=== PATIENT | male | born 1960 | race Caucasian/White ===

== ENCOUNTER 2020-05-15 09:10 | Emergency (ER) | payer OTHER ==
[2020-05-15] MEDS ORDERED: Sodium Chloride 0.9% 10 ML Syringe FLUSH PRN (09:16)
--- NOTE | 2020-05-15 09:37 | EDM.PDOC ---
ED HPI GENERAL MEDICAL PROBLEM - General Chief Complaint: Neuro Symptoms/Deficits Stated Complaint: [facility] Time Seen by Provider: 05/15/20 09:15 Source of Information: Reports: EMS, Family History Limitations: Reports: Altered Mental Status - History of Present Illness INITIAL COMMENTS - FREE TEXT/NARRATIVE: The patient presents by [facility] for stroke like symptoms. His last time known well was 10pm last night. His and him talked and he was doing fine. He has a history of A-fib and he is on flecanide and metoprolol. He has been out of A-fib and is not on any blood thinners. He told his that he felt like he went into A-fib on Wednesday but it felt like he was back out again. He is seeing cardiology in [place]. He usually starts reading films at 5am but we were not getting labs. Staff and his tried calling him. His is out of town in [place], [place]. He did answer but would only say one word response like stop. EMS found him in the basement in the room he uses to read and he could not move anything. He did say a few words. He then could move his left side but not his right. He can move his right leg but not right arm and he is looking to the left. Onset: Sudden Duration: Hour(s): (Last time known well is 10 pm last night) Improves with: Reports: None Worsens with: Reports: None Associated Symptoms: Reports: No Other Symptoms - Related Data Allergies Allergy/AdvReac Type Severity Reaction Status Date / Time Unable to Assess Allergy Unverified 09/13/14 11:15 ED ROS GENERAL - Review of Systems Review Of Systems: See Below Constitutional: Reports: No Symptoms HEENT: Reports: No Symptoms Respiratory: Reports: No Symptoms Cardiovascular: Reports: No Symptoms Endocrine: Reports: No Symptoms GI/Abdominal: Reports: No Symptoms : Reports: No Symptoms Musculoskeletal: Reports: No Symptoms Skin: Reports: No Symptoms Neurological: Reports: Weakness (right side) ED EXAM, NEURO - Physical Exam Exam: See Below Exam Limited By: No Limitations General Appearance: Alert Ears: Normal External Exam Nose: Normal Inspection Throat/Mouth: Normal Inspection Head Exam: Atraumatic, Normocephalic Neck: Normal Inspection, Supple, Non-Tender Respiratory/Chest: No Respiratory Distress, Lungs Clear, Normal Breath Sounds Cardiovascular: Regular Rate, Rhythm, No Edema, No Murmur GI/Abdominal: Soft, Non-Tender, No Organomegaly, No Mass Neurological: Alert, Other (He cannot move his right arm but he can move his right leg. He will give me one word answers. He is looking to the left.) EKG INTERPRETATION EKG Date: 05/15/20 Time: 09:56 Rhythm: Other (sinus bradycardia) Rate (Beats/Min): 56 [place]: Normal P-Wave: Present QRS: Normal ST-T: Normal QT: Normal MN/PQ Interval: 1st degree HB Course - Orders/Labs/Meds Orders: Active Orders 24 hr Category Date Time Status Cardiac Monitoring [RC] . DIRECTED Care 05/15/20 09:16 Active EKG Documentation Completion [RC] STAT Care 05/15/20 09:16 Active Oxygen Therapy [RC] PRN Care 05/15/20 09:16 Active Peripheral IV Care [RC] . DIRECTED Care 05/15/20 09:16 Active Brain wo Cont [MR] Stat Exams 05/15/20 09:27 Taken Head wo Cont [CT] Stat Exams 05/15/20 09:16 Taken CORONAVIRUS COVID-19 RAPID [MOLEC] Stat Lab 05/15/20 10:05 Received Sodium Chloride 0.9% [Saline Flush] Med 05/15/20 09:16 Active 10 ml FLUSH ASDIRECTED PRN Peripheral IV Insertion Adult [OM.PC] Stat Oth 05/15/20 09:16 Ordered Medication Orders Sodium Chloride (Saline Flush) 10 ml FLUSH ASDIRECTED PRN PRN Reason: Keep Vein Open Last Admin: 05/15/20 09:41 Dose: 10 ml Documented by: HEMALATHA Labs: Laboratory Tests 05/15/20 05/15/20 05/15/20 Range/Units 09:28 09:28 09:28 WBC 10.97 H (4.23-9.07) K/mm3 RBC 4.45 L (4.63-6.08) M/mm3 Hgb 14.3 (13.7-17.5) gm/dl Hct 42.2 (40.1-51.0) % MCV 94.8 H D (79.0-92.2) fl MCH 32.1 (25.7-32.2) pg MCHC 33.9 (32.2-35.5) g/dl RDW Std Deviation 43.8 (35.1-43.9) fL Plt Count 251 (163-337) K/mm3 MPV 11.1 (9.4-12.3) fl Neut % (Auto) 88.7 H (34.0-67.9) % Lymph % (Auto) 6.0 L (21.8-53.1) % Kerr % (Auto) 5.0 L (5.3-12.2) % Eos % (Auto) 0 L (0.8-7.0) Baso % (Auto) 0.1 (0.1-1.2) % Neut # (Auto) 9.73 H (1.78-5.38) K/mm3 Lymph # (Auto) 0.66 L (1.32-3.57) K/mm3 Kerr # (Auto) 0.55 (0.30-0.82) K/mm3 Eos # (Auto) 0.00 L (0.04-0.54) K/mm3 Baso # (Auto) 0.01 (0.01-0.08) K/mm3 Manual Slide Review Abnormal smear PT 11.6 (9.7-11.7) SECONDS INR 1.09 APTT 25 (22-31) SECONDS Sodium 139 (136-145) mEq/L Potassium 3.8 (3.5-5.1) mEq/L Chloride 104 (98-107) mEq/L Carbon Dioxide 23 (21-32) mEq/L Anion Gap 15.8 H (5-15) BUN 8 (7-18) mg/dL Creatinine 1.1 (0.7-1.3) mg/dL Est Cr Clr Drug Dosing TNP Estimated GFR (MDRD) > 60 (>60) mL/min BUN/Creatinine Ratio 7.3 L (14-18) Glucose 122 H (80-115) mg/dL Calcium 8.5 (8.5-10.1) mg/dL Total Bilirubin 0.6 (0.2-1.0) mg/dL AST 20 (15-37) U/L ALT 26 (16-63) U/L Alkaline Phosphatase 60 (46-116) U/L Troponin I < 0.017 (0.00-0.056) ng/mL Total Protein 7.1 (6.4-8.2) g/dl Albumin 3.8 (3.4-5.0) g/dl Globulin 3.3 gm/dL Albumin/Globulin Ratio 1.2 (1-2) Meds: Medications Generic Name Dose Route Start Last Admin Trade Name Niall PRN Reason Stop Dose Admin Sodium Chloride 10 ml 05/15/20 09:16 05/15/20 09:41 Saline Flush FLUSH 10 ml ASDIRECTED PRN Administration Keep Vein Open - Re-Assessments/Exams Free Text/Narrative Re-Assessment/Exam: 05/15/20 09:39 A stroke alert was called. I did a quick exam of the patient when he came in and he had right sided weakness. He went right to the CT scanner. I ordered an IV saline lock, labs, CT of his head. The CT of his head shows hypodensity noted within the left middle cerebral artery distribution involving the temporoparietal lobe just anterior to the sylvian fissure. This is best seen on image 10/13 through this possibly, given the history of right-sided weakness, is an acute ischemic event. This does apparently involve the insular cortex. There is no intracranial blood. There is mild small vessel ischemic changes. I called [facility] in [place] and talked with Dr Ahmadi and he recommended an MRI diffusion and flair of his brain. I have ordered that. [place] [facility] crew has been dispatched. 05/15/20 10:01 His EKG shows sinus bradycardia. 05/15/20 10:18 The MRI is done. Dr Ahmadi looked at it and he said this is a fairly recent stroke and he wants us to give TPA. Dr Valerio has no other contraindications. I did call his Eloisa and she was advised of the risks and benefits and she was for it. I did order the TPA. He is 100kg. Departure - Departure Time of Disposition: 10:25 Disposition: DC/Tfer to Acute Hospital 02 Condition: Serious Clinical Impression: Cerebrovascular accident (CVA) Qualifiers: CVA mechanism: occlusion Precerebral and cerebral artery: middle cerebral artery Laterality of affected vessel: left Qualified Code(s): I63.512 - Cerebral infarction due to unspecified occlusion or stenosis of left middle cerebral artery - Discharge Information Forms: ED Department Discharge - My Orders Last 24 Hours: My Active Orders 05/15/20 09:16 Cardiac Monitoring [RC] . DIRECTED EKG Documentation Completion [RC] STAT Oxygen Therapy [RC] PRN Peripheral IV Care [RC] . DIRECTED Head wo Cont [CT] Stat Sodium Chloride 0.9% [Saline Flush] 10 ml FLUSH ASDIRECTED PRN Peripheral IV Insertion Adult [OM.PC] Stat 05/15/20 09:27 Brain wo Cont [MR] Stat 05/15/20 10:05 CORONAVIRUS COVID-19 RAPID [MOLEC] Stat - Assessment/Plan Last 24 Hours: My Active Orders 05/15/20 09:16 Cardiac Monitoring [RC] . DIRECTED EKG Documentation Completion [RC] STAT Oxygen Therapy [RC] PRN Peripheral IV Care [RC] . DIRECTED Head wo Cont [CT] Stat Sodium Chloride 0.9% [Saline Flush] 10 ml FLUSH ASDIRECTED PRN Peripheral IV Insertion Adult [OM.PC] Stat 05/15/20 09:27 Brain wo Cont [MR] Stat 05/15/20 10:05 CORONAVIRUS COVID-19 RAPID [MOLEC] Stat
[2020-05-15] MEDS ORDERED: Alteplase 81 MG in Premix Bag 1 BAG IV ONE (10:30)
--- NOTE | 2020-06-25 09:39 | CT ---
PROCEDURE INFORMATION: Exam: CT Head Without Contrast Exam date and time: 05/15/2020 9:01 AM Age: 59 years old Clinical indication: Speech disturbance and weakness, extremity; Patient HX: Right sided weakness, stroke protocol TECHNIQUE: Imaging protocol: Computed tomography of the head without contrast. Radiation optimization: All CT scans at this facility use at least one of these dose optimization techniques: automated exposure control; mA and/or kV adjustment per patient size (includes targeted exams where dose is matched to clinical indication); or iterative reconstruction. COMPARISON: No relevant prior studies available. FINDINGS: Brain: There is hypodensity noted within the left middle cerebral artery distribution involving the temporoparietal lobe just anterior to the sylvian fissure. This is best seen on image 10/13 through . This possibly, given the history of right-sided weakness, is an acute ischemic event. This does apparently involves the insular cortex. There is no intracranial blood. There is mild small vessel ischemic changes. Cerebral ventricles: No ventriculomegaly. Bones/joints: Unremarkable. No acute fracture. Paranasal sinuses: Visualized sinuses are unremarkable. No fluid levels. Mastoid air cells: Visualized mastoid air cells are well aerated. Soft tissues: Unremarkable. IMPRESSION: Suspected acute left middle cerebral artery infarct. ASSESSMENT: ASPECTS (Becky Stroke Program Early CT Score) is 8. Thank you for allowing us to participate in the care of your patient. Dictated and Authenticated by: Low Woodson MD 06/24/2020 1:20 PM Central Time ([place] & [place]) ANYA
--- NOTE | 2020-06-25 09:40 | MR ---
PROCEDURE INFORMATION: Exam: MR Head Without Contrast Exam date and time: 05/15/2020 9:40 AM Age: 59 years old Clinical indication: Other: CVA, right sided weakness TECHNIQUE: Imaging protocol: MR of the head without contrast. COMPARISON: CT Head wo Cont 05/15/2020 9:01 AM FINDINGS: Brain: There is an acute infarct noted involving the left middle cerebral artery distribution involving the medial aspect of the left temporal lobe extending into the mid to posterior parietal lobe. This is mostly cortical. There is no intracranial hemorrhage. Minimal areas of increased signal seen within the deep white matter suggestive of mild small vessel ischemic disease. Cerebral ventricles: Normal. No ventriculomegaly. Bones/joints: Unremarkable. Paranasal sinuses: Normal as visualized. No acute sinusitis. Mastoid air cells: Normal as visualized. No mastoid effusion. Orbits: Unremarkable. Soft tissues: Unremarkable. IMPRESSION: 1. Left middle cerebral artery nonhemorrhagic. 2. THIS REPORT CONTAINS FINDINGS THAT MAY BE CRITICAL TO PATIENT CARE. The findings were verbally communicated by me to FRANCIS IBRAHIM at 11:14 AM MARINE SERVICE MANAGER on 05/15/2020. The findings were acknowledged and understood. The ER physician was notified of these results before the examination was dictated. Thank you for allowing us to participate in the care of your patient. Dictated and Authenticated by: Low Woodson MD 06/24/2020 1:21 PM Central Time ([place] & [place]) [facility] CENTERPlacido
== END 2020-05-15 11:32 ==
LOC: JD.ED 09:10
DX: I63.512 Cerebral infarction due to unspecified occlusion or stenosis of left middle cerebral artery (principal); I48.91 Unspecified atrial fibrillation; Z79.899 Other long term (current) drug therapy
CPT/HCPCS: 36415; 37195; 70450; 70551; 80053; 84484; 85025; 85610; 85730; 87635; 93005; 99285; J2997; U0002

== ENCOUNTER 2020-12-26 09:36 | Day surgery (SDC) | payer OTHER ==
[~2020-12-26 09:36] MED LIST: Lactated Ringers 1,000 ML IV SCH; Lidocaine 1%/Sod Bicarbonate in NS 8.4% 1 ML Syringe IDERM PRN; Sodium Chloride 0.9% 10 ML Syringe FLUSH PRN
--- NOTE | 2020-12-26 10:18 | PCM.PREANE ---
Preanesthetic Assessment - Procedure Proposed Procedure: Open left inguinal hernia repair with mesh - Anesthesia/Transfusion/Family Hx Anesthesia History: Prior Anesthesia Without Reaction Family History of Anesthesia Reaction: No Transfusion History: No Prior Transfusion(s) Intubation History: Unknown - Review of Systems Cardiovascular: No Symptoms (History of Atrial fibrillation on eliquis ) Neurological: No Symptoms (History of left MCA CVA in April 2020 (received TPA in ER) on eliquis) Other: Reports: Easy Bleeding, Easy Bruising - Physical Assessment NPO Status Date: 12/25/20 Vital Signs: HR: Sat: B/P: Temp: Resp: Height: 1.83 m ASA Class: 3 Mental Status: Alert & Oriented x3 - Lab Values: All labs reviewed and noted and within acceptable ranges to proceed with scheduled procedure. - Imaging/EKG Impressions: EKG: SR rate= 56, prolonged QT interval 2014 Echocardiogram: EF= 65% - Allergies Allergies/Adverse Reactions: Allergies Allergy/AdvReac Type Severity Reaction Status Date / Time Unable to Assess Allergy Verified 12/25/20 14:05 - Anesthesia Plan Pre-Op Medication Ordered: Beta Isai Beta Isai: Metoprolol Med Last Dose Date: 12/26/20 - Acknowledgements Anesthesia Type Planned: MAC (Local/Mac) Pt an Appropriate Candidate for the Planned Anesthesia: Yes Alternatives and Risks of Anesthesia Discussed w Pt/Guardian: Yes Pt/Guardian Understands and Agrees with Anesthesia Plan: Yes PreAnesthesia Questionnaire HEENT History: Reports: Impaired Vision Cardiovascular History: Reports: Afib Respiratory History: Reports: None Gastrointestinal History: Reports: Other (See Below) Other Gastrointestinal History: bilateral inguinal hernias RN CLINICAL History: Reports: None Musculoskeletal History: Reports: None Neurological History: Reports: CVA Psychiatric History: Reports: None Endocrine/Metabolic History: Reports: None Hematologic History: Reports: None Immunologic History: Reports: None Oncologic (Cancer) History: Reports: None Dermatologic History: Reports: None - Past Surgical History Head Surgeries/Procedures: Reports: None HEENT Surgical History: Reports: None Cardiovascular Surgical History: Reports: None Respiratory Surgical History: Reports: None GI Surgical History: Reports: None Female Surgical History: Reports: None Male Surgical History: Reports: None Endocrine Surgical History: Reports: None Neurological Surgical History: Reports: None Musculoskeletal Surgical History: Reports: None Oncologic Surgical History: Reports: None Dermatological Surgical History: Reports: None - SUBSTANCE USE Tobacco Use Status *Q: Never Tobacco User Recreational Drug Use History: No - HOME MEDS Home Medications: Home Meds Apixaban [Eliquis] 5 mg PO BID 12/25/20 [History] Flecainide [Tambocor] 100 mg PO BID 12/25/20 [History] Metoprolol Succinate [Toprol XL] 25 mg PO DAILY 12/25/20 [History] - CURRENT (IN HOUSE) MEDS Current Meds: Current Medications Lactated Ringer's (Ringers, Lactated) 1,000 mls @ 125 mls/hr IV ASDIRECTED AGUSTÍN Stop: 12/26/20 23:00 Lidocaine/Sodium Bicarbonate (Lidocaine 1%/Sod Bicarbonate In Ns 8.4% 1 Ml Syringe) 0.25 ml IDERM ONETIME PRN PRN Reason: Prior to IV Start Stop: 12/26/20 18:00 Sodium Chloride (Sodium Chloride 0.9% 10 Ml Syringe) 10 ml FLUSH ASDIRECTED PRN PRN Reason: Keep Vein Open Stop: 12/26/20 18:00
--- NOTE | 2020-12-26 10:56 | PCM.PREANE ---
Preanesthetic Assessment - Anesthesia/Transfusion/Family Hx Anesthesia History: Prior Anesthesia Without Reaction Family History of Anesthesia Reaction: No Transfusion History: No Prior Transfusion(s) Intubation History: Unknown - Review of Systems General: No Symptoms Pulmonary: Cough (states from seasonal allergies) Cardiovascular: No Symptoms Gastrointestinal: No Symptoms Neurological: No Symptoms Other: Reports: Easy Bleeding, Easy Bruising - Physical Assessment NPO Status Date: 12/25/20 NPO Status Time: 20:00 Height: 1.83 m ASA Class: 3 Mental Status: Alert & Oriented x3 Airway Class: Mallampati = 1 Dentition: Reports: Normal Dentition Thyro-Mental Finger Breadths: 3 Mouth Opening Finger Breadths: 3 ROM/Head Extension: Full Lungs: Clear to Auscultation, Normal Respiratory Effort Cardiovascular: Regular Rate, Regular Rhythm - Allergies Allergies/Adverse Reactions: Allergies Allergy/AdvReac Type Severity Reaction Status Date / Time Unable to Assess Allergy Verified 12/25/20 14:05 - Anesthesia Plan Beta Isai: Metoprolol Med Last Dose Date: 12/25/20 Med Last Dose Time: 20:00 - Acknowledgements Anesthesia Type Planned: MAC Pt an Appropriate Candidate for the Planned Anesthesia: Yes Alternatives and Risks of Anesthesia Discussed w Pt/Guardian: Yes Pt/Guardian Understands and Agrees with Anesthesia Plan: Yes PreAnesthesia Questionnaire HEENT History: Reports: Impaired Vision Cardiovascular History: Reports: Afib Respiratory History: Reports: None Gastrointestinal History: Reports: Other (See Below) Other Gastrointestinal History: bilateral inguinal hernias CONVEYOR SYSTEM DISPATCHER History: Reports: None Musculoskeletal History: Reports: None Neurological History: Reports: CVA () Psychiatric History: Reports: None Endocrine/Metabolic History: Reports: None Hematologic History: Reports: None Immunologic History: Reports: None Oncologic (Cancer) History: Reports: None Dermatologic History: Reports: None - Past Surgical History Head Surgeries/Procedures: Reports: None HEENT Surgical History: Reports: None Cardiovascular Surgical History: Reports: Other (See Below) (endovasular thrombectomy) Respiratory Surgical History: Reports: None GI Surgical History: Reports: None Female Surgical History: Reports: None Male Surgical History: Reports: None Endocrine Surgical History: Reports: None Neurological Surgical History: Reports: C-Spine Musculoskeletal Surgical History: Reports: None, Other (See Below) (foot) Oncologic Surgical History: Reports: None Dermatological Surgical History: Reports: None - SUBSTANCE USE Tobacco Use Status *Q: Never Tobacco User Recreational Drug Use History: No - HOME MEDS Home Medications: Home Meds Apixaban [Eliquis] 5 mg PO BID 12/25/20 [History] Flecainide [Tambocor] 100 mg PO BID 12/25/20 [History] Metoprolol Succinate [Toprol XL] 25 mg PO DAILY 12/25/20 [History] - CURRENT (IN HOUSE) MEDS Current Meds: Current Medications Lactated Ringer's (Ringers, Lactated) 1,000 mls @ 125 mls/hr IV ASDIRECTED AGUSTÍN Stop: 12/26/20 23:00 Lidocaine/Sodium Bicarbonate (Lidocaine 1%/Sod Bicarbonate In Ns 8.4% 1 Ml Syringe) 0.25 ml IDERM ONETIME PRN PRN Reason: Prior to IV Start Stop: 12/26/20 18:00 Sodium Chloride (Sodium Chloride 0.9% 10 Ml Syringe) 10 ml FLUSH ASDIRECTED PRN PRN Reason: Keep Vein Open Stop: 12/26/20 18:00 Discontinued Medications Bupivacaine HCl/Epinephrine Bitart (Bupivacaine 0.5%/Epinephrine 1:200,000 50 Ml Mdv) Confirm Administered Dose 50 ml .ROUTE .STK-MED ONE Stop: 12/26/20 10:44
[2020-12-26] MEDS ORDERED: Propofol 200 MG/20 ML SDV ONE ×5 (11:01→12:51)
[2020-12-26] MEDS ORDERED: ceFAZolin 1 GM Vial ONE (11:01)
[2020-12-26] MEDS ORDERED: Midazolam 1 MG/ML 2 ML SDV ONE ×2 (11:01→12:26)
[2020-12-26] MEDS ORDERED: Lidocaine 1% 4 ML ONE (11:01)
[2020-12-26] MEDS ORDERED: fentaNYL 100 MCG/2 ML SDV ONE ×2 (11:02→12:00)
[2020-12-26] MEDS: Bupivacaine 0.5%/EPINEPHrine 1:200,000 50 ML MDV ONE ×2 (11:48→12:14)
[2020-12-26] MEDS ORDERED: Lactated Ringers 1,000 ML ONE (11:57)
[2020-12-26] MEDS ORDERED: Ondansetron 4 MG/2 ML SDV ONE (12:19)
--- NOTE | 2020-12-26 13:19 | PCM48HPAN ---
Post Anesthesia Note - EVALUATION WITHIN 48HRS OF ANESTHETIC Vital Signs in Normal Range: Yes Patient Participated in Evaluation: Yes Respiratory Function Stable: Yes Airway Patent: Yes Cardiovascular Function Stable: Yes Hydration Status Stable: Yes Pain Control Satisfactory: Yes Nausea and Vomiting Control Satisfactory: Yes Mental Status Recovered: Yes Vital Signs: Last Vital Signs Temp 36.6 C 12/26/20 10:25 Pulse 53 L 12/26/20 10:25 Resp 16 12/26/20 10:25 BP 124/84 12/26/20 10:25 Pulse Ox 95 12/26/20 10:25
--- NOTE | 2020-12-26 13:26 | PCM.PRNOTE ---
- Free Text/Narrative Note: Date: 12/26/2020 Operation: open left inguinal hernia repair Surgeon: Zeferino Hugo MD Findings: operation performed with patient taking eliquis given CVA a few months ago. No significant blood loss. Floor of the inguinal canal was disrupted with wide-mouth direct inguinal hernia. Sac was not entered. Repaired with Progrip mesh. Detailed Report: The patient was taken to the operating room and placed in supine position. Timeout was performed and monitored anesthesia care was initiated. Hair was clipped, and the lower abdomen and left groin were prepped and draped in usual sterile fashion. A total of 20 cc 0.5% Marcaine with epinephrine was injected intradermally and in the underlying subcutaneous tissue along the marked projection of the inguinal ligament. A 6 cm incision was made through the skin along the projection of the inguinal ligament. Dissection was carried down through subcutaneous tissue, Cesia's fascia, and innominate fascia to the external oblique aponeurosis. The external ring was palpated. Additional 10 cc of local anesthetic was injected deep to the roof of the inguinal canal. A stab incision was made through the external oblique aponeurotic fibers overlying the canal, and Metzenbaum scissors were passed just deep to the roof of the canal proximally and distally. The roof was then divided sharply with scissors, exposing the spermatic cord. The ilioinguinal nerve was identified and preserved. The cord contents were bluntly from aponeurotic fibers and cremasteric muscle using a Kitner. Once freed up at the level of the pubic tubercle, a right angle clamp was passed deep to the structures and a [place] drain was looped around the cord to aid with retraction and help with dissection. The floor of the inguinal canal was destroyed, with a [place] direct inguinal hernia evident. This contained visceral fat. All this tissue was from the spermatic cord starting distally and working proximally. The hernia sac was not entered. Once all of the hernia contents were reduced back to the abdomen deep to the internal ring, mesh was brought into the field for tissue reconstruction. A 9 x 15 cm piece of progrip mesh was cut to size and introduced into the field. The inferomedial aspect was secured at Rachid's ligament with good 2 cm medial and inferior overlap. The lateral edge of the mesh was sutured to the shelving edge of the inguinal ligament using Prolene suture. A slit was cut in the mesh to allow passage of the spermatic cord. The medial aspect of the mesh was secured to the internal oblique muscle with a few interrupted Prolene sutures. The mesh lay nice and flat and appeared to provide good reconstruction of the floor of the inguinal canal. The leaflets of the mesh were brought together superiorly to reconstruct the internal ring, and the Velcro element was used to secure the mesh. The mesh was laid flat sup erolaterally deep to the external oblique aponeurotic fibers. Next, the external oblique aponeurosis was closed with running Vicryl suture. Overlying superficial tissue was closed in layers with interrupted Vicryl sutures, including Cesia's fascia and subcutaneous fat. A few interrupted deep dermal stitches were placed to bring the skin together. A 4-0 Vicryl running subcuticular stitch was used to close the skin. The wound was dressed with Dermabond. The patient tolerated the procedure well.
== END 2020-12-26 14:18 | disposition home or self-care (01) ==
LOC: JD.SDS 09:36
PROVIDERS: ATTEND Surgery
DX: K40.20 Bilateral inguinal hernia, without obstruction or gangrene, not specified as recurrent (principal); I48.91 Unspecified atrial fibrillation; Z86.73 Personal history of transient ischemic attack (TIA), and cerebral infarction without residual deficits
CPT/HCPCS: 00830; C1781; J0690; J2250; J2405; J2704; J3010; J3490; J7120